=== PATIENT | female | born 1970 | race Caucasian/White ===

== ENCOUNTER 2018-01-20 06:07 | Day surgery (SDC) | payer OTHER ==
[~2018-01-20] VITALS: Ht 165.1 cm; Wt 81.4 kg
[2018-01-20] MEDS ORDERED: BENZOCAINE 20% 50 MCG/SPRAY 57 GM TP ONE (06:08)
[2018-01-20] MEDS ORDERED: LIDOCAINE 2% 30 ML JELLY TP ONE (06:08)
[2018-01-20] MEDS ORDERED: EPINEPHrine 1:1,000 [1 MG/ML] AMP IM ONE (06:08)
[2018-01-20] MEDS ORDERED: LIDOCAINE 4% 50 ML SOLUTION TP ONE (06:08)
[2018-01-20] MEDS ORDERED: SODIUM CHLORIDE 0.9% 1,000 ML IV ONE ×3 (06:16→07:00)
[2018-01-20 06:54] LABS: GLUCOMETER DEV NAME(LOC) SDS 5; GLUCOSE,POINT OF CARE 260 MG/DL (70-110)
[2018-01-20] MEDS ORDERED: OLAN10TA3 PO (07:04)
[2018-01-20] MEDS ORDERED: ESCI10TA PO (07:04)
[2018-01-20] MEDS ORDERED: POT25TAB5 PO (07:04)
[2018-01-20] MEDS ORDERED: OMEP20 PO (07:04)
[2018-01-20] MEDS ORDERED: TRAZ-219 PO (07:04)
[2018-01-20] MEDS ORDERED: EXEN2PEN SQ (07:26)
[2018-01-20] MEDS ORDERED: INSU3INS3 SD (07:26)
[2018-01-20] MEDS ORDERED: FLUT16H NASAL (07:26)
[2018-01-20] MEDS ORDERED: HYDR25TA PO (07:26)
[2018-01-20] MEDS ORDERED: MONT10TA21 PO (07:26)
[2018-01-20] MEDS ORDERED: ALBU8.5H8 IH (07:26)
[2018-01-20] MEDS ORDERED: ATOR40TA28 PO (07:26)
[2018-01-20] MEDS ORDERED: INSU100V SQ (07:26)
[2018-01-20] MEDS ORDERED: GABA-531 PO (07:26)
[2018-01-20] MEDS ORDERED: BECL10.6 IH (07:26)
[2018-01-20] MEDS ORDERED: ASPI81 PO (07:26)
[2018-01-20] MEDS ORDERED: METO-296 PO (07:26)
[2018-01-20] MEDS ORDERED: HYDR-4061 PO (07:26)
[2018-01-20] MEDS ORDERED: METF-960 PO (07:26)
[2018-01-20] MEDS ORDERED: LEVO100 PO (07:26)
[2018-01-20] MEDS ORDERED: CHOL500062 PO (07:26)
[2018-01-20] MEDS ORDERED: LOSA50TA25 PO (07:26)
[2018-01-20] MEDS ORDERED: MIDAZOLAM HCL 2 MG/2 ML VIAL ONE (08:28)
[2018-01-20] MEDS ORDERED: FentaNYL CITRATE-PF 100 MCG/2 ML VIAL ONE (08:29)
[2018-01-20] MEDS ORDERED: MethylPREDNISolone SOD SUCC 125 MG/2 ML VIAL IVP ONE (09:00)
[2018-01-20] MEDS ORDERED: OXYGEN THERAPY IH SCH (20:00)
== END 2018-01-20 10:15 | disposition home or self-care (01) ==
LOC: SURGERY 06:07
PROVIDERS: ATTEND Internal Medicine Critical Care Medicine
DX: J38.4 Edema of larynx (principal); B37.0 Candidal stomatitis; J98.09 Other diseases of bronchus, not elsewhere classified; J45.998 Other asthma; I10 Essential (primary) hypertension; E78.00 Pure hypercholesterolemia, unspecified; E11.9 Type 2 diabetes mellitus without complications; I25.2 Old myocardial infarction; Z86.73 Personal history of transient ischemic attack (TIA), and cerebral infarction without residual deficits; Z86.74 Personal history of sudden cardiac arrest; Z79.1 Long term (current) use of non-steroidal anti-inflammatories (NSAID); Z79.891 Long term (current) use of opiate analgesic; Z79.4 Long term (current) use of insulin; Z79.84 Long term (current) use of oral hypoglycemic drugs; Z79.82 Long term (current) use of aspirin; Z90.710 Acquired absence of both cervix and uterus; Z90.89 Acquired absence of other organs; Z98.890 Other specified postprocedural states; Z79.899 Other long term (current) drug therapy
CPT/HCPCS: 31623; 31624; 71045; 82962; 87015; 87070; 87205; 87206; 87220; J0171; J2250; J2930; J3010; J7030